=== PATIENT | female | born 1995 | race Caucasian/White ===

== ENCOUNTER 2017-08-19 11:46 | Emergency (ER) | payer MEDICAID, OTHER ==
--- NOTE | 2017-08-19 12:18 | EDPHY ---
H & P Stated Complaint: dog bite r thigh above knee/animal control here Source: Patient Exam Limitations: No limitations - Personal History LMP (Females 10-55): Over 28 Days Ago Current Tetanus Diphtheria and Acellular Pertussis (TDAP): Unsure - Medical/Surgical History Hx Asthma: No Hx Chronic Respiratory Disease: No Hx Diabetes: No Hx Cardiac Disease: No Hx Renal Disease: No Hx Cirrhosis: No Hx Alcoholism: No Hx HIV/AIDS: No Hx Splenectomy or Spleen Trauma: No Other PMH: ortho injury - Social History Smoking Status: Never smoked Time Seen by Provider: 08/19/17 12:17 HPI/ROS: HPI: This is a 22-year-old female who presents with Chief Complaint: dog bite r thigh above knee/animal control here Location: Right thigh Quality: Dog bite Duration: Prior to arrival Signs and Symptoms: No bleeding, no radiation, no numbness, no weakness, no tingling, no incontinence, no decreased range of motion, no swelling, no pain, no fever Timing: Acute Severity: [id number] Context: Patient reports that she is walking down the street when a Rouse like dog that she did not know it is family consumer science teacher came up and bit her on the right thigh. She was wearing pants and her pants ripped secondary to the bite. She denies any pain, radiation, weakness, swelling. Unsure of tetanus status. Animal Control has been notified. Modifying Factors: None Comment: ROS: see HPI Constitutional: No fever, no chills, no weight loss Eyes: No blurred vision Respiratory: No shortness of breath, no cough Cardiovascular: No chest pain Gastrointestinal: No nausea, no vomiting no diarrhea Genitourinary: No dysuria Extremities: No myalgias Neurologic: No weakness, no numbness Skin: No rashes Hematologic: No bruising, no bleeding MEDICAL/SURGICAL/SOCIAL HISTORY: Medical history: Generally healthy. Does not take any regular medications. Surgical history: Denies Social history: Employed. Nonsmoker. CONSTITUTIONAL: Polite and cooperative young adult white female awake and alert , no obvious distress HEENT: Atraumatic and normocephalic, PERRL, EOMI. Nares patent; no rhinorrhea; no nasal mucosal edema. Tympanic membranes clear. Oropharynx clear, no exudate and moist pink mucosa. Airway patent. No lymphadenopathy. No meningismus. Cardiovascular: Normal S1/S2, regular rate, regular rhythm, without murmur rub or gallop. PULMONARY/CHEST: Symmetrical and nontender. Clear to auscultation bilaterally. Good air movement. No accessory muscle usage. ABDOMEN: Soft, nondistended, nontender, no rebound, no guarding, no peritoneal signs, no masses or organomegaly. No CVAT. EXTREMITIES: 2/2 pulses, strength 5/5, right thigh shows superficial puncture site with surrounding bruising; no active bleeding. Right KNEE: no effusion, no medial and lateral joint line tenderness, full extension to 180, flexion to 120. No pain with varus and valgus exam. No pain with anterior drawer or posterior drawer test. no deformities, no clubbing, no cyanosis or edema. NEUROLOGICAL: no focal neuro deficits. GCS 15. SKIN: Warm and dry, no erythema. no rash. Good capillary refill. (Janine Jackson) Constitutional: Initial Vital Signs Temperature (C) 36.9 C 08/19/17 11:48 Heart Rate 83 08/19/17 11:48 Respiratory Rate 18 08/19/17 11:48 Blood Pressure 133/79 H 08/19/17 11:48 O2 Sat (%) 95 08/19/17 11:48 O2 Delivery Mode Room Air Allergies/Adverse Reactions: No Known Allergies Allergy (Unverified 08/19/17 11:48) Home Medications: Medication Instructions Recorded Amoxicillin/Clavulanate Pot 875 mg PO BID #14 tab 08/19/17 [Augmentin 875 MG TAB (*)] Medical Decision Making ED Course/Re-evaluation: Tetanus booster given. Area copiously cleaned and irrigated. Bacitracin and clean sterile dressing applied. Given Augmentin. Animal Control has been notified and patient prefers to wait for dog to be quarantined and politely declines rabies prophylaxis. No signs of neurovascular compromise/tenting of skin/compartment syndrome/ extremities and joints examined above and below area of concern and are neurovascularly intact. This patient was seen under the supervision of my secondary supervising physician. I evaluated care for this patient independently. Discussed this patient with Dr. Hairston who did not see the patient. (Janine Jackson) The patient was evaluated and managed by the physician assistant men's soccer coach. I have reviewed this chart and I agree with the findings and plan of care as documented , as indicated by my signature. I am the secondary supervising physician. ( Dhara Hairston) Differential Diagnosis: Differential diagnosis includes but is not limited to puncture wound, cellulitis , tenosynovitis, muscle injury, rhabdomyolysis. (Janine Jackson) - Data Points Medications Given: Discontinued Medications Amoxicillin/Clavulanate Potassium (Augmentin 875mg) 875 mg PO EDNOW ONE PRN Reason: Protocol Stop: 08/19/17 12:23 Last Admin: 08/19/17 12:27 Dose: 875 mg Diphtheria/Tetanus/Acell Pertussis (Boostrix) 0.5 ml IM .ONCE ONE Stop: 08/19/17 12:22 Last Admin: 08/19/17 12:28 Dose: 0.5 ml Tetracaine/Epinephrine/Lidocaine (Let Gel Topical) 1 ea TP EDNOW ONE Stop: 08/19/17 12:27 Last Admin: 08/19/17 12:30 Dose: 1 ea Departure - Departure Disposition: Home, Routine, Self-Care Clinical Impression: Dog bite of thigh without complication Condition: Good Instructions: Amoxicillin/Clavulanate Potassium (By mouth), Animal Bite (ED) Additional Instructions: Keep the dressing dry and in place for 48 hours. After 48 hours, you may remove the dressing; wash the site daily with mild soap and water; then pat dry. Take Tylenol 650 mg every 4 hours and/or Ibuprofen 600 mg every 8 hours with food as needed for pain. Take Augmentin twice a day for the next 7 days. Apply ice for 30 minutes at a time; 2-3 times per day for the next 1-2 days. Please follow-up with animal control regarding the immunization status of the dog that bit you. Return to the ER immediately if you experience redness, red streaks, have fevers /chills, flu like symptoms, limited range of motion, or any other symptoms that concern you. Referrals: WILBER STODDARD [Primary Care Provider] - 3-4 days, if not improved Prescriptions: Amoxicillin/Clavulanate Pot [Augmentin 875 MG TAB (*)] 875 mg PO BID #14 tab
[2017-08-19] MEDS ORDERED: TDAP ADULT 0.5 ML INJ (BOOSTRIX) IM ONE (12:21)
[2017-08-19] MEDS ORDERED: AMOXICILLIN/CLAVULANATE POT 875/125 MG TAB PO ONE (12:22)
[2017-08-19] MEDS ORDERED: LET GEL TOPICAL 1 EA SYR TP ONE (12:26)
[2017-08-19 12:57] VITALS: BP 124/69
== END 2017-08-19 12:58 | disposition home or self-care (01) ==
DX: S71.151A Open bite, right thigh, initial encounter (principal); Z23 Encounter for immunization; W54.0XXA Bitten by dog, initial encounter; Y92.410 Unspecified street and highway as the place of occurrence of the external cause; Y99.8 Other external cause status; Y93.01 Activity, walking, marching and hiking